=== PATIENT | female | born 1960 | race Caucasian/White ===

== ENCOUNTER 2017-03-20 15:00 | Emergency (ER) | payer OTHER ==
--- NOTE | 2017-03-20 15:30 | EDM.PDOC ---
ED HPI GENERAL MEDICAL PROBLEM - General Chief Complaint: Genitourinary Problem Stated Complaint: PAINFUL URINATION Time Seen by Provider: 03/20/17 15:22 Source of Information: Reports: Patient History Limitations: Reports: No Limitations - History of Present Illness INITIAL COMMENTS - FREE TEXT/NARRATIVE: 56-year-old female presents for evaluation and treatment of dysuria. Reports her symptoms have been present for the last week. Current symptoms include dysuria, foul urine odor, increased urinary frequency and feelings of incomplete bladder emptying. She has been taking cranberry juice and Advil as well as increasing her fluids. She's reports some lower back pain but states that she is currently sleeping a hotel and it could be from this. No fevers, abdominal pain or hematuria. Patient does not have a primary care provider. Recently relocated to [place] from [place]. 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 [No Known Home Meds] 03/20/17 [History] Past Medical History - Past Health History Medical/Surgical History: Denies Medical/Surgical History Social & Family History - Tobacco Use Smoking Status *Q: Never Smoker - Caffeine Use Caffeine Use: Reports: Coffee, Tea - Recreational Drug Use Recreational Drug Use: No ED ROS GENERAL - Review of Systems Review Of Systems: See Below Constitutional: Denies: Fever GI/Abdominal: Denies: Abdominal Pain : Reports: Dysuria, Frequency, Urgency, Urinary Retention, Other (no vaginal discharge). Denies: Discharge, Hematuria Musculoskeletal: Reports: Back Pain ED EXAM, RENAL/ - Physical Exam Exam: See Below Exam Limited By: No Limitations General Appearance: Alert, WD/WN, No Apparent Distress Respiratory/Chest: No Respiratory Distress, Lungs Clear, Normal Breath Sounds Cardiovascular: Normal Peripheral Pulses, Regular Rate, Rhythm, No Murmur GI/Abdominal: Normal Bowel Sounds, Soft, Non-Tender Back Exam: No: CVA Tenderness (L), CVA Tenderness (R) Neurological: Alert, Oriented, Normal Cognition Psychiatric: Normal Affect, Normal Mood Skin Exam: Warm, Dry, Normal Color Course - Vital Signs Last Recorded V/S: Last Vital Signs Temp 36.7 C 03/20/17 15:09 Pulse 64 03/20/17 15:09 Resp 20 03/20/17 15:09 BP 154/93 H 03/20/17 15:09 Pulse Ox 99 03/20/17 15:09 - Orders/Labs/Meds Orders: Active Orders 24 hr Category Date Time Status CULTURE URINE [RM] Stat Lab 03/20/17 15:15 Received Labs: Laboratory Tests 03/20/17 Range/Units 15:15 Urine Color Yellow (Yellow) Urine Appearance Slt cloudy H (Clear) Urine pH 6.0 (5.0-8.0) Ur Specific [place] > or = 1.030 (1.005-1.030) Urine Protein 2+ H (Negative) Urine Glucose (UA) Negative (Negative) Urine Ketones Negative (Negative) Urine Occult Blood 2+ H (Negative) Urine Nitrite Negative (Negative) Urine Bilirubin Negative (Negative) Urine Urobilinogen 0.2 (0.2-1.0) Ur Leukocyte Esterase 2+ H (Negative) Urine RBC 10-20 H (0-5) /hpf Urine WBC 50-75 H (0-5) /hpf Ur Epithelial Cells 5-10 H (0-5) /hpf Urine Bacteria Moderate H (FEW) /hpf Urine Mucus Few (FEW) /hpf - Re-Assessments/Exams Free Text/Narrative Re-Assessment/Exam: 03/20/17 16:06 I reviewed the urine results with the patient. Will start her on Macrobid 1 tab twice a day for 5 days. urine sent for culture. Discharge instructions as documented. Rx for macrobid 100mg caps #10 written from [facility]. Departure - Departure Time of Disposition: 16:07 Disposition: Home, Self-Care 01 Condition: Fair Clinical Impression: UTI, Urinary tract infectious disease - Discharge Information Instructions: Urinary Tract Infection, Adult Referrals: PCP,None [Primary Care Provider] - Forms: ED Department Discharge Additional Instructions: Take the Macrobid as prescribed. 1 tab twice a day for 5 days. Recommend picking up some [id number] Azo. Take this as directed. this will help with the dysuria. make sure you are drinking plenty of fluids. Follow-up with family medicine if your symptoms have not improved much in one week. Recommend Dr. Eubanks at the [facility]. Call [phone] to schedule with her. Please return to the ER if your symptoms change or worsen. - My Orders Last 24 Hours: My Active Orders 03/20/17 15:15 CULTURE URINE [RM] Stat - Assessment/Plan Last 24 Hours: My Active Orders 03/20/17 15:15 CULTURE URINE [RM] Stat
== END 2017-03-20 16:20 | disposition home or self-care (01) ==
LOC: JD.ED 15:00
DX: N39.0 Urinary tract infection, site not specified (principal)
CPT/HCPCS: 81001; 87086; 87088; 87186; 99283